=== PATIENT | female | born 1945 | race Caucasian/White ===

== ENCOUNTER 2017-03-23 05:44 | Inpatient (IN) | payer MEDICARE ==
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
[2017-03-23] VITALS (43 sets, daily range): BP systolic 79–140; BP diastolic 33–87; PULSE 62–98; RESP 9–27; Ht 154.9 cm; Wt 54.3 kg
[~2017-03-23] VITALS: Ht 154.9 cm; Wt 54.3 kg
[2017-03-23] MEDS ORDERED: ASPI-664 PO (06:04)
[2017-03-23] MEDS ORDERED: LISI10TA2 PO (06:04)
[2017-03-23] MEDS ORDERED: ALEN40TA2 PO (06:04)
[2017-03-23] MEDS ORDERED: LIDOCAINE 2% (SDV) 5 ML INJ ONE (06:25)
[2017-03-23] MEDS ORDERED: MIDAZOLAM 1 MG/ML 2 ML INJ ONE (06:25)
[2017-03-23] MEDS ORDERED: GLYCOPYRROLATE 0.4 MG INJ ONE (06:25)
[2017-03-23] MEDS ORDERED: FENTAnyl 50 MCG/ML VIAL ONE (06:25)
[2017-03-23] MEDS ORDERED: PROPOFOL 20 ML ONE (06:25)
[2017-03-23] MEDS ORDERED: ROCURONIUM 50 MG INJ ONE (06:25)
[2017-03-23] MEDS ORDERED: NEOSTIGMINE 3 MG/3 ML SYRINGE ONE (06:25)
[2017-03-23] MEDS ORDERED: ONDANSETRON 4 MG INJ ONE ×2 (06:28→10:33)
[2017-03-23] MEDS ORDERED: DEXAMETHASONE 4 MG/ML 1 ML INJ ONE (06:28)
[2017-03-23] MEDS ORDERED: DIPHENHYDRAMINE 50 MG INJ IV PRN (06:30)
[2017-03-23] MEDS ORDERED: MEPERIDINE 25 MG INJ IV PRN (06:30)
[2017-03-23] MEDS ORDERED: LABETALOL HCL 20MG INJ IV PRN (06:30)
[2017-03-23] MEDS ORDERED: FENTAnyl 50 MCG/ML VIAL IV PRN (06:30)
[2017-03-23] MEDS ORDERED: ONDANSETRON 4 MG INJ IV PRN ×2 (06:30→16:00)
[2017-03-23] MEDS ORDERED: EPHEDrine SULFATE 50 MG/5 ML SYG IV PRN (06:30)
[2017-03-23] MEDS ORDERED: CEFAZOLIN 1 GM INJ ONE (06:30)
[2017-03-23] MEDS ORDERED: MIDAZOLAM 1 MG/ML 2 ML INJ IV PRN (06:30)
[2017-03-23] MEDS ORDERED: SUGAMMADEX SODIUM 200 MG/2 ML VIAL IV ONE (06:30)
[2017-03-23] MEDS ORDERED: hydrALAzine 20 MG INJ IV PRN (06:30)
[2017-03-23] MEDS ORDERED: ATROPINE 1 MG/10 ML SYRINGE IV PRN (06:30)
[2017-03-23] MEDS ORDERED: morphine SULFATE/PF (10 MG/10 ML) INJ ONE (07:14)
--- NOTE | 2017-03-23 07:39 | HPN ---
Date/Time of Note Date/Time of Note DATE: 03/23/17 TIME: 07:39 Interval H&P Admission Note Pt. seen H&P reviewed: No system changes VERO PITTS MD Mar 23, 2017 07:39
[2017-03-23] MEDS ORDERED: LABETALOL HCL 20MG INJ ONE (08:02)
[2017-03-23] MEDS ORDERED: LACTATED RINGER'S 1,000 ML IV* SCH (09:30)
[2017-03-23] MEDS ORDERED: CEFAZOLIN 2 GM/50 ML (PMX) 50 ML IVPB SCH (09:30)
--- NOTE | 2017-03-23 10:43 | SIPON ---
Date/Time of Note Date/Time of Note DATE: 03/23/17 TIME: 10:42 Operative Report Preoperative Diagnosis rt ovarian cyst Postoperative Diagnosis benign gross exam by pathologist Operation/Procedure Performed MARIAN BSO Surgeon see signature line print shop assistant reiche Anesthesia: general, spinal Estimated blood loss: 50 - 100 ml's Transfusion Required none Specimen uterus cervix both ovary and tubes Grafts/Implants none Complications none VERO PITTS MD Mar 23, 2017 10:43
[2017-03-23] MEDS: FENTAnyl 50 MCG/ML VIAL IV PRN ×3 (11:44→13:14)
[2017-03-23] MEDS: IBUPROFEN 600 MG TAB PO PRN (15:53)
[2017-03-23] MEDS: SOD CHLORIDE 0.45% 1,000 ML IV SCH ×2 (15:53→21:00)
[2017-03-23] MEDS ORDERED: KETOROLAC 15 MG INJ IV PRN (18:00)
[2017-03-24 02:00] VITALS: BP 111/54; RESP 16
[2017-03-24] MEDS: SOD CHLORIDE 0.45% 1,000 ML IV SCH ×2 (02:26→07:00)
--- NOTE | 2017-03-24 04:56 | OPR ---
DATE OF OPERATION: 03/23/2017 PREOPERATIVE DIAGNOSIS: Right ovarian cyst. POSTOPERATIVE DIAGNOSIS: Right ovarian cyst, grossly benign by pathologist exam. No frozen section was necessary by him. OPERATION PERFORMED: Total abdominal hysterectomy, bilateral salpingo-oophorectomy. SURGEON: Vijay Goodrich MD COMMISSARY MANAGER: Lizandro Adkins MD. ANESTHESIA: General and spinal for the postop pain control. ESTIMATED BLOOD LOSS: Less than 100 mL. PROCEDURE: Under proper induction of spinal and general anesthesia, the patient was placed in the f kelley position. Doss catheter was introduced after the perineal area and vaginal prep was done. Rep ositioned to supine. Abdominal wall was prepped and draped in usual aseptic manner. A Pfannenstiel incision was made. The incision was carried down through the subcutaneous tissue to the anterior r ecti fascia which was incised transversely in length of the incision. Facial flap was created by bl unt and sharp dissection of tendinous attachment, cephalad and caudad to rectus muscles split in the midline. Peritoneal cavity was entered. Pelvic organ was explored. Right ovary felt to be enlarg ed and cystic. The uterus is very small and the left ovary and it felt to be normal size. The eliazar l was packed away after the OC retractor was introduced. The entire pelvic organ was visualized. R ight adnexa was occupied by the enlarged ovary, which is approximately 6 cm in longitudinal diameter . The cystic structure was seen that with multiple smaller cysts on the surface. The left ovary ap peared to be normal. Uterus is small size approximately 4 cm in longitudinal diameter. At this poi nt, both cornua were held with Pean and decided to do the right adnexa, removed it, called the patho logist who examined while we are doing the procedure. The right round ligament was clamped and cut, and the broad ligament was windowed and the infundibulopelvic ligament was clamped, doubly ligated with #1 chromic catgut and right adnexa was removed from the operative field. Then same procedure w as done on the left adnexa, which was removed after the infundibulopelvic ligament was clamped and c ut and doubly ligated with #1 chromic catgut. The left adnexa was also given to the pathologist to exam. The right side of uterine vessel was skeletonized and this was clamped and cut and transfixed with #1 Vicryl. Same procedure was done on the left, round ligament was clamped and cut, ligated w ith #1 chromic catgut suture, was left long for the next procedure. Anterior leaf of the broad liga ment was incised inferomedially towards the cervical fold creating the bladder flap, and the bladder was pushed down and the uterine vessel was clamped and cut, ligated with #1 chromic catgut. Furthe r dissection of the cervical fascia and the bladder pushed down and the uterosacral ligament was cla mped and cut, ligated with #1 chromic catgut, suture was left long, and then multiple bites of cardi nal ligament was clamped, cut, and ligated with #1 chromic catgut. An anterior vaginal wall was ent ered with a scalpel and through this and the entire cervix and the uterus was removed and the vagina l vault was held with multiple Smeaj's. Angled hemostatic ligature using #1 chromic catgut includi ng anterior vaginal wall and cardinal ligament and uterosacral ligament and posterior vaginal wall, and suture was left long on each side. The rest of vaginal vault was closed with #1 chromic catgut in etmbmv-lq-lomch manner. All bleeders controlled properly. The pathologist reported that both ov cathi appeared normal grossly and no frozen section was necessary. Abdominal cavity was irrigated w ith water and the bleeder checked properly and a Surgicel placed on surgical site and Interceed was laid on it. All the sponge was removed and the retractor was also removed from the operative field. The count was correct. Parietal peritoneum was closed using 0 chromic catgut in continuous manner , muscle closed with 0 chromic catgut in continuous manner. The fascia closed with #1 Vicryl in con tinuous manner in 2 segments. Subcutaneous tissues were irrigated with water, this layer was approx imated with a 2-0 plain in continuous manner. Skin closed with Insorb. Steri-Strips applied. Pres sure dressing applied. Estimated blood loss approximately 200 mL. Urine output is approximately 23 0 mL, clear. The patient withstood procedure and was sent to recovery room in stable condition. Dictated By: VIJAY ZIEGLER/LEONOR Conf#: [id number] DID#: [id number] CC: LIZANDRO ADKINS MD; GISSELLE NATION MD;*EndCC*
[2017-03-24 06:31] LABS: HEMATOCRIT 31.1 % (37.0-47.0); HEMOGLOBIN 10.5 g/dl (12.0-16.0); LYMPHOCYTES # 1.1 10^3/ul (0.8-2.9); LYMPHOCYTES % 10.8 % (15.0-51.0); MEAN CORPUSCULAR HEMOGLOBIN 31.3 pg (29.0-33.0); MEAN CORPUSCULAR HGB CONC 33.8 g/dl (32.0-37.0); MEAN CORPUSCULAR VOLUME 92.6 fl (82.0-101.0); MEAN PLATELET VOLUME 10.5 fl (7.4-10.4); MONOCYTES % 9.8 % (0.0-11.0); NEUTROPHIL # 8.2 10^3/ul (1.6-7.5); NEUTROPHILS % 79.1 % (39.0-77.0); PLATELET COUNT 200 10^3/UL (140-415); RED BLOOD COUNT 3.36 10^6/ul (4.20-5.40); RED CELL DISTRIBUTION WIDTH 12.2 % (11.5-14.5); WHITE BLOOD COUNT 10.3 10^3/ul (4.8-10.8)
[2017-03-24 06:52] LABS: ALBUMIN 3.3 g/dl (3.3-4.9); ALBUMIN/GLOBULIN RATIO 1.17; BILIRUBIN,INDIRECT 0.4 mg/dl (0-1.1); BILIRUBIN,TOTAL 0.4 mg/dl (0.2-1.3); CALCIUM 7.8 mg/dl (8.4-10.2); CREATININE 0.81 mg/dl (0.44-1.00); POTASSIUM 4.4 mmol/L (3.5-5.1); TOTAL PROTEIN 6.1 g/dl (6.1-8.1)
[2017-03-24 07:35] VITALS: BP 119/58; RESP 19
[2017-03-24] MEDS: IBUPROFEN 600 MG TAB PO PRN ×2 (10:05→22:12)
--- NOTE | 2017-03-24 10:44 | PN ---
Date/Time of Note Date/Time of Note DATE: 03/24/17 TIME: 10:42 Assessment/Plan Lines/Catheters IV Catheter Type (from Nrs): Peripheral IV Doss in Place (from Nrsg): Yes Subjective 24 Hr Interval Summary S passing flatus no nause or vomiting O vss afebrile abdomen soft wound dry no vaginal bleeding calf neg for tenderness A stable MARIAN BSO P a s ordered Exam/Review of Systems Vital Signs Vitals Vital Signs Date Time Temp Pulse Resp B/P Pulse Ox O2 Delivery O2 Flow Rate FiO2 03/24/17 07:35 97.9 99 19 119/58 98 03/23/17 14:14 Room Air Intake and Output 03/23/17 03/23/17 03/24/17 15:00 23:00 07:00 Intake Total 300 ml 1600 ml Output Total 250 ml 300 ml 300 ml Balance -250 ml 0 ml 1300 ml Results Result Diagram: 03/24/17 0532 03/24/17 0532 VERO PITTS MD Mar 24, 2017 10:44
[2017-03-24 15:48] VITALS: BP 133/62; RESP 18
[2017-03-24 19:50] VITALS: BP 117/56; RESP 20
[2017-03-24 22:31] LABS: ADD UMIC YES; UR ASCORBIC ACID NEGATIVE (NEGATIVE); UR BILIRUBIN (Dip) NEGATIVE (NEGATIVE); UR BLOOD (Dip) 2+ mg/dL (NEGATIVE); UR CLARITY CLEAR (CLEAR); UR COLOR YELLOW (YELLOW); UR GLUCOSE (Dip) NEGATIVE (NEGATIVE); UR KETONES (Dip) 1+ mg/dL (NEGATIVE); UR LEUKOCYTE ESTERASE (Dip) NEGATIVE Leu/ul (NEGATIVE); UR NITRITE (Dip) NEGATIVE (NEGATIVE); UR RBC 16 /HPF (0-5); UR SPECIFIC GRAVITY (Dip) 1.012 (1.003-1.030); UR TOTAL PROTEIN (Dip) NEGATIVE (NEGATIVE); UR UROBILINOGEN (Dip) NEGATIVE (NEGATIVE)
[2017-03-25 01:13] LABS: BASOPHILS % 0.1 % (0.0-2.0); EOSINOPHILS % 0.2 % (0.0-7.0); HEMATOCRIT 30.3 % (37.0-47.0); HEMOGLOBIN 10.2 g/dl (12.0-16.0); LYMPHOCYTES # 1.4 10^3/ul (0.8-2.9); LYMPHOCYTES % 16.6 % (15.0-51.0); MEAN CORPUSCULAR HEMOGLOBIN 31.5 pg (29.0-33.0); MEAN CORPUSCULAR HGB CONC 33.7 g/dl (32.0-37.0); MEAN CORPUSCULAR VOLUME 93.5 fl (82.0-101.0); MEAN PLATELET VOLUME 9.8 fl (7.4-10.4); MONOCYTE # 0.8 10^3/ul (0.3-0.9); MONOCYTES % 10.1 % (0.0-11.0); NEUTROPHIL # 5.9 10^3/ul (1.6-7.5); NEUTROPHILS % 72.6 % (39.0-77.0); PLATELET COUNT 172 10^3/UL (140-415); RED BLOOD COUNT 3.24 10^6/ul (4.20-5.40); RED CELL DISTRIBUTION WIDTH 12.8 % (11.5-14.5); WHITE BLOOD COUNT 8.1 10^3/ul (4.8-10.8)
[2017-03-25 02:00] VITALS: BP 100/50; RESP 16
--- NOTE | 2017-03-25 02:56 | PN ---
DATE: 03/24/2017 SUBJECTIVE: The patient is alert and awake. Minimal discomfort. She is not vomiting. She is taki ng fluids and some food. OBJECTIVE: CHEST: Clear to A and P. HEART: Normal sinus rhythm. No murmurs, no enlargement. ABDOMEN: Liver, kidneys, spleen are not palpable. Bowel sounds are normal. Abdomen is soft. EXTREMITIES: No ankle edema. This is postoperative day #1. VITAL SIGNS: She is afebrile, blood pressure is 133/62, pulse of 99, respiratory rate is 20. IMAGING: Pathology report reveals no evidence of malignancy in the uterus, tubes, or ovaries. LABORATORY DATA: WBC 10,300, hemoglobin 10.5, hematocrit 31.1%, platelet count 200,000. Differenti al is normal. Sodium 135, potassium 4.4, chloride 103, carbon dioxide 25, BUN 15, creatinine 0.81, calcium 7.8, albumin 3.3. Urine revealed 16 red blood cells per high power field. Corrected calciu m is 8.36. ASSESSMENT AND PLAN: The patient is doing well postoperatively. Dictated By: ALYSSA SERRA/LEONOR Conf#: [id number] DID#: [id number]
[2017-03-25 06:59] LABS: CALCIUM 8.1 mg/dl (8.4-10.2); CREATININE 0.74 mg/dl (0.44-1.00); POTASSIUM 3.9 mmol/L (3.5-5.1)
[2017-03-25 08:10] VITALS: BP 120/58; RESP 16
[2017-03-25 13:24] VITALS: BP 124/60; RESP 16
[2017-03-25 20:00] VITALS: BP 134/63; RESP 20
[2017-03-25] MEDS ORDERED: IBUP-1542 PO (23:05)
--- NOTE | 2017-03-25 23:05 | PD.PPDC ---
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
--- NOTE | 2017-03-25 23:09 | DS ---
Date/Time of Note Date/Time of Note DATE: 03/25/17 TIME: 23:08 Discharge Summary Admission/Discharge Info Admit Date/Time Mar 23, 2017 at 05:44 Discharge Date/Time Mar 26, 2017 Discharge Diagnosis S/P MARIAN/BSO for b/l ovarian cystadenofibroma. Patient Condition: Good Procedures MARIAN/BSO Hospital Course Pt did relatively well postoperatively. She has good pain management with Motrin only. She advanced her diet and is on solids but has a noticeably diminished appetite. No Nausea or vomiting and she is voiding and had a small BM. She will be ready for d/c in the AM. Home Meds Reported Medications Alendronate Sodium* (Alendronate Sodium*) 40 Mg Tablet, 70 MG PO every week, # 30 TAB 03/23/17 Aspirin* (Aspirin* EC) 81 Mg Tablet.dr, 81 MG PO DAILY, TAB 03/23/17 Lisinopril* (Lisinopril*) 10 Mg Tablet, 10 MG PO DAILY, #30 TAB 03/23/17 Follow-up Plan To Dr Goodrich in 2 weeks Primary Care Provider Not On Staff Doctor Time spent on discharge: < 30 minutes Pending Labs Laboratory Tests Test 03/25/17 01:00 03/25/17 05:35 White Blood Count 8.110^3/ul (4.8-10.8) Red Blood Count 3.2410^6/ul (4.20-5.40) Hemoglobin 10.2g/dl (12.0-16.0) Hematocrit 30.3% (37.0-47.0) Mean Corpuscular Volume 93.5fl (82.0-101.0) Mean Corpuscular Hemoglobin 31.5pg (29.0-33.0) Mean Corpuscular Hemoglobin Concent 33.7g/dl (32.0-37.0) Red Cell Distribution Width 12.8% (11.5-14.5) Platelet Count 77473^3/UL (140-415) Mean Platelet Volume 9.8fl (7.4-10.4) Neutrophils % 72.6% (39.0-77.0) Lymphocytes % 16.6% (15.0-51.0) Monocytes % 10.1% (0.0-11.0) Eosinophils % 0.2% (0.0-7.0) Basophils % 0.1% (0.0-2.0) Nucleated Red Blood Cells % 0.0/100WBC (0.0-0.0) Neutrophils # 5.910^3/ul (1.6-7.5) Lymphocytes # 1.410^3/ul (0.8-2.9) Monocytes # 0.810^3/ul (0.3-0.9) Eosinophils # 0.010^3/ul (0.0-0.5) Basophils # 0.010^3/ul (0.0-0.1) Nucleated Red Blood Cells # 0.010^3/ul (0.0-0.0) Sodium Level 142mmol/L (135-144) Potassium Level 3.9mmol/L (3.5-5.1) Chloride Level 110mmol/L (97-110) Carbon Dioxide Level 27mmol/L (21-31) Anion Gap 9 (8-16) Blood Urea Nitrogen 11mg/dl (7-20) Creatinine 0.74mg/dl (0.44-1.00) Glucose Level 91mg/dl (70-220) Calcium Level 8.1mg/dl (8.4-10.2) ALBERTO ADKINS MD Mar 25, 2017 23:09
--- NOTE | 2017-03-25 23:38 | PN ---
DATE: 03/25/2017 SUBJECTIVE: The patient is awake and alert. She feels well. Minimal pain and discomfort. OBJECTIVE: CHEST: Clear to A and P. HEART: Normal sinus rhythm. ABDOMEN: Liver, kidneys, spleen are not palpable. Bowel sounds are normal. Abdomen is soft. EXTREMITIES: No ankle edema. VITAL SIGNS: The patient is afebrile. Temperature is 98.3, blood pressure is 134/63, pulse is 88, respiratory rate is 20. LABORATORY DATA: White blood cell count 8100, hemoglobin 10.2, hematocrit 30.3%. Differential was normal. Chemistry: Sodium is 142, potassium is 3.9, chloride is 110, carbon dioxide is 27, BUN is 11, creatinine is 0.74. Calcium is 8.1 uncorrected. Glucose is 91. PLAN: The patient to be discharged tomorrow. Dictated By: ALYSSA NIELSEN MD WR/NTS Conf#: [id number] DID#: [id number] CC: RIOS PITTS MD;*EndCC*
[2017-03-26 02:00] VITALS: BP 144/67; RESP 20
[2017-03-26 06:34] LABS: BASOPHILS % 0.7 % (0.0-2.0); EOSINOPHILS # 0.1 10^3/ul (0.0-0.5); HEMATOCRIT 30.6 % (37.0-47.0); HEMOGLOBIN 10.5 g/dl (12.0-16.0); LYMPHOCYTES # 1.6 10^3/ul (0.8-2.9); LYMPHOCYTES % 26.3 % (15.0-51.0); MEAN CORPUSCULAR HEMOGLOBIN 32.2 pg (29.0-33.0); MEAN CORPUSCULAR HGB CONC 34.3 g/dl (32.0-37.0); MEAN CORPUSCULAR VOLUME 93.9 fl (82.0-101.0); MEAN PLATELET VOLUME 10.6 fl (7.4-10.4); MONOCYTE # 0.8 10^3/ul (0.3-0.9); MONOCYTES % 12.9 % (0.0-11.0); NEUTROPHIL # 3.4 10^3/ul (1.6-7.5); NEUTROPHILS % 57.8 % (39.0-77.0); PLATELET COUNT 191 10^3/UL (140-415); RED BLOOD COUNT 3.26 10^6/ul (4.20-5.40); RED CELL DISTRIBUTION WIDTH 12.4 % (11.5-14.5)
[2017-03-26 07:30] VITALS: BP 143/66; RESP 18
== END 2017-03-26 11:40 | disposition home or self-care (01) | DRG 743 ==
LOC: REC 05:44 → MS2 14:45
PROVIDERS: ADMIT Obstetrics & Gynecology; ATTEND Obstetrics & Gynecology
PROC: 0UT20ZZ Resection of Bilateral Ovaries, Open Approach (ICD-10-PCS; 2017-03-23)
PROC: 0UT70ZZ Resection of Bilateral Fallopian Tubes, Open Approach (ICD-10-PCS; 2017-03-23)
PROC: 0UT90ZZ Resection of Uterus, Open Approach (ICD-10-PCS; principal; 2017-03-23 07:30)
DX: D27.0 Benign neoplasm of right ovary (principal); I10 Essential (primary) hypertension; D27.1 Benign neoplasm of left ovary
CPT/HCPCS: 80048; 80053; 81001; 85025; 86850; 86900; 86901; 86920; 87086; 88305; 88307; J0690; J1100; J1885; J2175; J2250; J2274; J2405; J2710; J3010; J7120